=== PATIENT | female | born 1995 | race Caucasian/White ===

== ENCOUNTER 2019-09-22 00:41 | Outpatient (CLI) | payer OTHER, SELFPAY ==
[2019-09-22 22:45] LABS: SARS-CoV-2 RNA PCR Negative
== END 2019-09-22 00:42 | disposition home or self-care (01) ==
LOC: ANHCOVIDDT 00:43
PROVIDERS: Visit Provider Internal Medicine Gastroenterology
DX: Z01.812 Encounter for preprocedural laboratory examination (principal); Z11.59 Encounter for screening for other viral diseases
CPT/HCPCS: 87635; C9803; U0003

== ENCOUNTER 2019-09-24 00:50 | Day surgery (SDC) | payer OTHER, SELFPAY ==
[2019-09-24 07:47] VITALS: BP 103/63; PULSE 63; RESP 16; TEMP 36.6; O2SAT 100
--- NOTE | 2019-09-24 08:10 | WPDANESEPPF ---
Anes - Initial Pre Proc Eval Procedure: Operation Date: 09/24/19 08:30 Proposed Procedures p Esophagogastroduodenoscopy - Jabier Gómez DO Date/Time: 09/24/19 08:10 Surgeon: Jabier Gómez DO Pre Op Diagnosis: GERD Patient Data Age: 24 Gender: F Height: 5 ft 4 in Weight: 87.4 kg Last Vital Signs Temp 36.6 C 09/24/19 07:47 Pulse 63 09/24/19 07:47 Resp 16 09/24/19 07:47 BP 103/63 09/24/19 07:47 Pulse Ox 100 09/24/19 07:47 Allergies Allergy/AdvReac Type Severity Reaction Status Date / Time No Known Allergies Allergy Verified 09/24/19 07:57 Home Medications Medication Instructions Recorded Confirmed Type Lacto.acidophilus-Bif.animalis 1 cap PO DAILY 09/17/19 09/24/19 History [Daily Probiotic] famotidine 20 mg PO DAILY 09/17/19 09/24/19 History lansoprazole 30 mg PO DAILY 09/17/19 09/24/19 History norgestimate-ethinyl estradiol 1 tablet PO DAILY 09/17/19 09/24/19 History [Utu-Ej-Keybtsch] Patient hx anesthesia problems: none Family hx anesthesia problems: none PMFSH Past Medical History Medical History Anxiety GERD (gastroesophageal reflux disease) Anes - Eval Final PreProcedure Day of Procedure 09/24/19 08:10 Patient weight: overweight Heart: regular rate and rhythm Lungs: clear to auscultation Airway: Mallampati scale class II Neurological: alert and oriented Last oral intake: >/= 8 hours ASA classification: II Emergent: no Anesthetic plan: proceed Anesthesia type and monitoring: general GIVS and standard monitoring Informed Consent: The patient's anesthetic plan and its attendant risks and benefits were discussed with the patient/family/POA. Questions were solicited and answers provided to the satisfaction of the patient/family/POA.
[2019-09-24] MEDS: LACTATED RINGERS 1,000 ML 150 ML IV CONT (08:15)
--- NOTE | 2019-09-24 08:47 | PM.IMHP ---
H&P: HPI History of Present Illness Chief complaint: GERD Narrative: Reason for visit EGD. Impression: GERD. Recommendation: EGD. History: For pleasant lady's being readied for heartburn. She has had upper for the last year. She has been placed on [id number] Prevacid and famotidine. She continues to have difficulty with heartburn. The heartburn usually occurs during the day. She denies any nocturnal awakenings. She reports regurgitation but no true vomiting. Hematemesis, dysphagia, odynophagia or tonight. She does complain of occasional constipation in which she takes MiraLax for. Patient is here for EGD. Physical examination: General: very pleasant patient in no acute distress. HEENT: Head was normocephalic sclerae is clear mouth without masses neck was supple. Heart: Rate rhythm regular without S3 or S4. Lungs: CTA. Abdomen: Soft with no guarding or rigidity. Bowel sounds were active. Neurologic: Cranial nerves 2 through 12 intact. No focal defects. No clonus. Musculoskeletal system: Revealed no joint tenderness or swelling no muscle atrophy. Extremities: Reveal no significant edema. Skin: Warm and dry with normal turgor. Mental status: intact. Patient is alert and oriented. Review of Systems Review of Systems: All systems reviewed & are unremarkable except as noted in HPI and below PMFSH Past Medical History Medical History Anxiety GERD (gastroesophageal reflux disease) Meds Home Medications and Allergies Home Medications Medication Instructions Recorded Confirmed Type Lacto.acidophilus-Bif.animalis 1 cap PO DAILY 09/17/19 09/24/19 History [Daily Probiotic] famotidine 20 mg PO DAILY 09/17/19 09/24/19 History lansoprazole 30 mg PO DAILY 09/17/19 09/24/19 History norgestimate-ethinyl estradiol 1 tablet PO DAILY 09/17/19 09/24/19 History [Yxj-Nb-Ikhyixdu] Allergies Allergy/AdvReac Type Severity Reaction Status Date / Time No Known Allergies Allergy Verified 09/24/19 07:57 Vital Signs Vital Signs - 24 hr 09/24/19 07:47 Temperature 36.6 C Pulse Rate 63 Respiratory Rate 16 Blood Pressure 103/63 Pulse Oximetry 100
[2019-09-24] MEDS: BENZOCAINE (*SP) 60 ML SPRAY CAN (HURRICAINE) 1 SPRAY MUCOUS MEM (08:48)
[2019-09-24 09:00] VITALS: BP 103/61; PULSE 63; RESP 21; O2SAT 98
[2019-09-24 09:10] VITALS: BP 87/52; PULSE 54; RESP 18; O2SAT 98
[2019-09-24 09:21] VITALS: BP 104/59; PULSE 56; RESP 20; O2SAT 100
== END 2019-09-24 09:33 | disposition home or self-care (01) ==
PROVIDERS: Visit Provider Internal Medicine Gastroenterology
PROC: 0DJ08ZZ Inspection of Upper Intestinal Tract, Via Natural or Artificial Opening Endoscopic (ICD-10-PCS; CPT 43235; principal; 2019-09-24 08:30)
DX: K21.9 Gastro-esophageal reflux disease without esophagitis (principal)
CPT/HCPCS: 43239; 87081; J2704; J7120

== ENCOUNTER 2019-10-05 07:45 | Outpatient (CLI) | payer OTHER, SELFPAY ==
--- NOTE | ~2019-10-05 | NM_ITS ---
EXAM: NM gastric emptying study DATE: 10/05/2019 14:04 INDICATION: Gastroesophageal reflux disease, esophagitis presence not specified. Gastroparesis. TECHNIQUE: A gastric emptying study was performed using the methodology of Russ YOUSIF, et al. J Nucl Med 2007; 48:568-572. The patient was given a meal consisting of 2 scrambled eggs labeled with 0.990 mCi Tc-99m sulfur colloid, 2 slices of toast, two packages of jam, and approximately 120 mL of water . Simultaneous anterior and posterior 1-min images of the abdomen were obtained with the patient supi ne at multiple time points over a total period of 4 hours. The geometric mean of anterior and posteri or views was determined, and the percentage retention was calculated for each time point. COMPARISON: None. FINDINGS: Gastric retention of the radiotracer-labeled meal was 111%, 114%, and 15% at the 1-hour, 2 -hour, and 4-hour time points, respectively. With this technique, apparent rapid gastric emptying is suggested by <30% gastric retention at 1 hour. Delayed gastric emptying is defined by gastric retenti on of >90% at 1 hour, >60% retention at 2 hours, or >10% retention at 4 hours. IMPRESSION: 1. Delayed gastric emptying. Reviewed, dictated and finalized at location A.
== END 2019-10-05 07:46 | disposition home or self-care (01) ==
PROVIDERS: Visit Provider Internal Medicine Gastroenterology
DX: K21.9 Gastro-esophageal reflux disease without esophagitis (principal); K30 Functional dyspepsia
CPT/HCPCS: 78264; A9541